=== PATIENT | male | born 1950 | race Caucasian/White ===

== ENCOUNTER 2018-04-19 11:46 | Emergency (ER) | payer MEDICARE, OTHER ==
[2018-04-19] MEDS ORDERED: Ondansetron ODT 4 MG TAB ONE (11:58)
[2018-04-19] MEDS ORDERED: HYDROcodone/Acetaminophen 5/325 mg Tablet ONE (12:35)
[2018-04-19 13:34] LABS: Bilirubin Negative (Negative); Blood, Urine Large (Negative); Clarity CLOUDY (Clear); Glucose, Urine (Dipstick) 250 mg/dL (Negative); Leukocyte Large (Negative); Nitrite Positive (Negative); Protein, Urine (Dipstick) 30 mg/dL (Neg-Trace); Specific Gravity, Urine 1.017 (1.002-1.036); Urobilinogen 0.2 mg/dL (0.2-1.0)
[2018-04-19 13:38] LABS: Bacteria/HPF 4+ HPF (None Seen); Hyaline Casts/LPF 4-6 HYALINE CAST LPF (0-3 Hyaline); Pathc Cast-AUWi Flag 0.77 (0-2.49); Squamous Epithelial None Seen HPF (0-3); Yeast-AUWi Flag 18.7 (0-25.0)
--- NOTE | 2018-04-19 13:56 | ULT ---
TESTICULAR ULTRASOUND: 04/19/2018 HISTORY: Left-sided testicular pain. FINDINGS: There is slight nonspecific but symmetric heterogeneity involving the testicles bilaterally. No test icular mass is seen. The right testicle measures 4.2 cm x 2.9 cm x 1.8 cm, with the left testicle me asuring 3.7 cm x 1.8 cm x 2.9 cm. Doppler evaluation of each testicle with spectral analysis and color-flow evaluation demonstrates art erial and venous flow in each testicle. The right epididymis demonstrates a normal sonographic appearance. The left epididymis is heterogene ous in appearance with increased flow. There is no evidence of a hydrocele. IMPRESSION: 1. Evidence for left-sided epididymitis. Clinical correlation is recommended. 2. Nonspecific but symmetric heterogeneity of each testicle. No testicular mass is seen, and there is arterial and venous flow documented in each testicle. POS: [facility]
[2018-04-19] MEDS ORDERED: Ketorolac Tromethamine 30 MG/ML VIAL ONE (14:36)
== END 2018-04-19 15:12 | disposition home or self-care (01) ==
LOC: ERS 11:46
DX: N45.1 Epididymitis (principal); I10 Essential (primary) hypertension; E78.5 Hyperlipidemia, unspecified; E11.9 Type 2 diabetes mellitus without complications; I48.91 Unspecified atrial fibrillation; N40.0 Benign prostatic hyperplasia without lower urinary tract symptoms
CPT/HCPCS: 76870; 81003; 81015; 93976; 96372; J1885; Q0162